=== PATIENT | male | born 1985 | race Caucasian/White ===

== ENCOUNTER → 2016-09-05 | Outpatient (CLI) | payer BC ==
[~2016-09-05] MED LIST: OMEP20TA7 PO; RT-ALBUINH IH
--- OUTSIDE RECORDS SUMMARY | 2016-09-05 14:53 | XMS REPORT ---
Author TIARA Howell Organization [employer] Address Unknown Phone Unavailable Care Team Providers Care Human Relations Teacher Name Role Phone TIARA OLMOS CP Unavailable Allergies, Adverse Reactions, Alerts Substance Reaction Event Type N.K.D.A. Info Not Available Non Drug Allergy Problems Problem Type Condition Code Onset Dates Condition Status Assessment Bronchitis J40 Active Problem RUQ pain R10.11 Active Medications Medication Code System Code Instructions Start Date End Date Status Dosage Doxycycline Hyclate [facility] [address]-35 100 MG Orally every 12 hrs May 31, 2016 Jun 10, 2016 1 capsule Tessalon Perles [facility] [address]-45 100 MG Orally Three times a day May 31, 2016 1 capsule as needed Albuterol Sulfate HFA [facility] [address]-69 108 (90 Base) MCG/ACT Inhalation every 4 hrs May 08, 2016 2 puffs as needed Procedures Procedure Coding System Code Date Office Visit, Est Pt., Level 3 CPT-4 25496 Jun 06, 2016 SOLUMEDROL (UP TO 125 MG) CPT-4 J2930 Jun 06, 2016 NEB/MDI RX INITIAL CPT-4 10922 Jun 06, 2016 THER/PROPH/DIAG INJ, SC/IM CPT-4 70050 Jun 06, 2016 Vital Signs Date/Time: Jun 06, 2016 Cardiac Monitoring Heart Rate 110 bpm Weight 183.0 lbs Height 64 in BMI 31.41 Index Blood Pressure Diastolic 76 mmHg Blood Pressure Systolic 112 mmHg Results No Known Results Summary Purpose [employer] Submission
--- NOTE | 2016-09-05 15:25 | Diagnostic Imaging Report ---
PROCEDURE: CT abdomen and pelvis without contrast. TECHNIQUE: Multiple contiguous axial images were obtained through the abdomen and pelvis without the use of intravenous contrast. INDICATION: Right upper quadrant pain. FINDINGS: The lung bases appear clear. The liver, gallbladder, pancreas, adrenals, and spleen appear unremarkable for an unenhanced exam. Incidental note of a congenital horseshoe kidney is seen. There is no hydronephrosis and no urinary tract stones. The abdominal aorta is normal in caliber. No periaortic significantly enlarged lymph node is seen. A tiny fat-containing umbilical hernia is noted. There is no bowel obstruction. The appendix is normal. There is a radiopaque markers of hernia mesh in the left inguinal region. There is no free fluid or fluid collection noted in the abdomen or pelvis. The osseous structures appear grossly unremarkable. IMPRESSION: 1. Congenital horseshoe kidney. 2. Tiny fat-containing umbilical hernia. Dictated by: Dictated on workstation # [id number]
== END ==
LOC: RAD 14:49
PROVIDERS: ATTEND Nurse Practitioner Family
DX: Q63.1 Lobulated, fused and horseshoe kidney (principal); K42.9 Umbilical hernia without obstruction or gangrene
CPT/HCPCS: 74176

== ENCOUNTER 2016-12-29 05:41 | Outpatient (CLI) | payer BC ==
[~2016-12-29] VITALS: Ht 162.6 cm; Wt 88.5 kg
[2016-12-29] MEDS ORDERED: RT-ALBUINH IH (09:17)
== END 2016-12-29 09:18 ==
LOC: PREOP 05:41
PROVIDERS: ATTEND Surgery
DX: Z01.818 Encounter for other preprocedural examination (principal); R11.10 Vomiting, unspecified

== ENCOUNTER 2017-01-01 08:35 | Day surgery (SDC) | payer BC ==
[~2017-01-01] VITALS: Ht 162.6 cm; Wt 88.5 kg
[~2017-01-01 08:35] MED LIST changes: -OMEP20TA7 PO
[2017-01-01 08:45] VITALS: BP 118/79
[2017-01-01] MEDS ORDERED: NS IV 1000 ML 1,000 ML IV PRN (08:45)
[2017-01-01] MEDS ORDERED: HURRICAINE EXT TUBE (BENZOCAINE) XX PRN (08:45)
[2017-01-01] MEDS ORDERED: proPOfol 200 MG/20 ML (DIPRIVAN) VIAL IV ONE (08:58)
[2017-01-01] MEDS ORDERED: MIDAZOLAM 2 MG/2 ML (VERSED) VIAL ONE (08:58)
--- NOTE | 2017-01-01 09:00 | Progress Note-Pre Operative ---
Pre-Operative Progress Note H&P Reviewed The H&P was reviewed, patient examined and no changes noted. Date H&P Reviewed: January 01, 2017 Time H&P Reviewed: 08:59 Pre-Operative Diagnosis: GERD, RUQ abdominal pain CHELSIE ZHAO DO January 01, 2017 8:59 am
--- NOTE | 2017-01-01 09:27 | Progress Note-Post Operative ---
Post-Operative Progess Note Surgeon (s)/New Accounts Clerk (s) Surgeon CHELSIE ZHAO DO New Accounts Clerk: na Pre-Operative Diagnosis GERD, RUQ abdominal pain Post-Operative Diagnosis slight duodenitis, small hiatal hernia Procedure & Operative Findings Date of Procedure 01/01/17 Procedure Preformed/Findings EGD c biopsy antrum Anesthesia Type per mda Estimated Blood Loss Estimated blood loss (mL): none Specimens/Packing Specimens Removed antrum Packing: na CHELSIE ZHAO DO January 01, 2017 9:27 am
[2017-01-01] MEDS ORDERED: OMEP20TA7 PO (09:28)
--- NOTE | 2017-01-01 09:29 | Discharge Inst-Simple/Standard ---
Discharge Inst-Standard Discharge Medications New, Converted or Re-Newed RX: Transmitted to Pharmacy Patient Instructions/Follow Up Plan of Care/Instructions/FU: 2 weeks Eryn Activity as Tolerated: Yes Discharge Diet: Regular Diet CHELSIE ZHAO DO January 01, 2017 9:29 am
--- NOTE | 2017-01-01 10:05 | OPERATIVE REPORT ---
DATE OF SERVICE: 01/01/2017 PREOPERATIVE DIAGNOSIS: Right upper quadrant pain, gastroesophageal reflux disease. POSTOPERATIVE DIAGNOSIS: Slight duodenitis, small hiatal hernia. SURGEON: Chelsie Cerna. PROCEDURE: EGD with biopsy. ANESTHESIA: Per MDA. ESTIMATED BLOOD LOSS: None. COMPLICATIONS: None. INDICATIONS: The patient is a 31-year-old male who has had right upper quadrant abdominal pain and reflux symptoms. He has had his gallbladder previously worked up and is undergoing workup for reevaluation. He was explained risks and benefits of EGD and wished to proceed with procedure. Consent was signed in the chart. PROCEDURE: The patient was taken to the endoscopy suite, placed in left lateral recumbent position. Timeout was performed. Scope was inserted in mouth, down into esophagus, stomach and into the duodenum without difficulty. Some slight erythematous changes present within the duodenum. No ulcers, no polyps or masses. Scope was slowly retracted back into the stomach where it was further insufflated. Biopsy of the antrum was obtained. There were no polyps, masses or ulcerations. Scope was retroflexed noting just a very small hiatal hernia. No other pathology noted. The scope was returned to its normal position, slowly withdrawn until completely removed, noting no other pathology. The patient tolerated procedure well without any complications. He was taken to the recovery room in stable condition. RECOMMENDATIONS: The patient will be started on omeprazole 20 mg daily. He will follow up in approximately two weeks to see how he was doing and go over biopsies and ultrasound HIDA scan that has been ordered. Job ID: [id number] DocumentID: [id number] Dictated Date: 01/01/2017 09:30:27 Manager [facility] Date: 01/01/2017 10:04:16 Dictated By: CHELSIE CERNA DO
[2017-01-01 10:10] VITALS: BP 108/62
[2017-01-01 10:40] VITALS: BP 116/68
[2017-01-01 10:50] VITALS: BP 116/68
== END 2017-01-01 11:00 | disposition home or self-care (01) ==
LOC: ENDO 08:35
PROVIDERS: ATTEND Surgery
DX: K29.80 Duodenitis without bleeding (principal); K44.9 Diaphragmatic hernia without obstruction or gangrene; J45.909 Unspecified asthma, uncomplicated; Z79.899 Other long term (current) drug therapy
CPT/HCPCS: 88305

== ENCOUNTER → 2017-01-03 | Outpatient (CLI) | payer BC ==
[~2017-01-03] MED LIST changes: +OMEP20TA7 PO
--- NOTE | 2017-01-03 13:16 | Diagnostic Imaging Report ---
PROCEDURE: US Gallbladder. TECHNIQUE: Multiple real-time grayscale images were obtained over the right upper quadrant in various projections. INDICATION: Right upper quadrant pain. FINDINGS: The pancreas is largely obscured. The liver demonstrates no focal mass. Hepatopetal flow in the portal vein is seen. The CBD is obscured by bowel gas. The gallbladder demonstrates no stones or wall thickening. The right kidney contour is abnormal with difficulty visualizing its entire aspect. On correlation with CT scan from 09/05/2016, this appears to be related to horseshoe kidney. IMPRESSION: 1. No gallstones or evidence of cholecystitis. 2. Difficulty in visualizing the kidney probably relates to horseshoe renal anomaly demonstrated on CT from August 2016. Dictated by: Dictated on workstation # [id number]
== END ==
LOC: RAD 08:29
PROVIDERS: ATTEND Surgery
DX: R10.11 Right upper quadrant pain (principal); R11.10 Vomiting, unspecified
CPT/HCPCS: 76705

== ENCOUNTER → 2017-01-29 | Outpatient (CLI) | payer BC ==
[~2017-01-29] MED LIST changes: +CATHETER FLUSH 10 ML SYR IV PRN
--- NOTE | 2017-01-29 13:02 | Diagnostic Imaging Report ---
EXAMINATION: HIDA with EF measurements Indication: Abdominal pain TECHNIQUE: After the intravenous administration of 5.2 mCi of Tc 99m Choletec, imaging over the abdomen was obtained. This was followed by administration of Ensure orally to stimulate intrinsic CCK secretion, followed by continued imaging with ejection fraction measured. FINDINGS: There is homogeneous uptake in the liver with prompt bile duct and gallbladder filling seen. Bowel activity is seen at 50 minutes. Based on further imaging and gallbladder area of interest activity measurements after the administration of Ensure, the gallbladder ejection fraction is estimated at 96%. IMPRESSION: 1. Normal hepatobiliary uptake and Gallbladder filling. 2. Normal gallbladder ejection fraction. Dictated by: Dictated on workstation # [id number]
--- NOTE | 2017-01-30 13:08 | Physician Query-Final Dx ---
NOLAN HYLTON 01/30/17 1308: Clinic Account Progress/Dx Physician Query: Please give diagnosis Please specify the location of the patients abd pain (ie: RUQ,LUQ,RLQ,LLQ, ECT..) thank you Date of Service Jan 29, 2017 at 10:04 CHELSIE ZHAO DO 02/12/17 0834: Clinic Account Progress/Dx Physician Query: right upper quadrant DIAGNOSIS: Diagnosis right upper quadrant abdominal pain Progress Note: Date Seen by Provider: Jan 29, 2017 Time Seen by Provider: 10:05 NOLAN HYLTON Jan 30, 2017 13:08 CHELSIE ZHAO DO Feb 12, 2017 08:34
== END ==
LOC: CARD 10:04
PROVIDERS: ATTEND Surgery
DX: R11.0 Nausea (principal); R10.11 Right upper quadrant pain
CPT/HCPCS: 78227